=== PATIENT | male | born 1960 | race Two or more races ===

== ENCOUNTER 2020-11-14 21:51 | Emergency (ER) | payer SELFPAY ==
--- NOTE | 2020-11-14 21:54 | EDM.PDOC ---
ED HPI GENERAL MEDICAL PROBLEM - General Stated Complaint: LT KNEE SWELLING, FALL 3 WEEKS AGO Time Seen by Provider: 11/14/20 21:52 Source of Information: Reports: Patient History Limitations: Reports: No Limitations - History of Present Illness INITIAL COMMENTS - FREE TEXT/NARRATIVE: 60-year-old male presents for left knee pain and swelling following a fall 3 weeks ago. Patient notes it is painful to walk on and painful to bend the knee. He notes that it feels squishy when he is pressing on it. Denies hitting his head or LOC. He has ambulated but notes pain with ambulation. left knee Pain Score (Numeric/FACES): 6 - Related Data Allergies Allergy/AdvReac Type Severity Reaction Status Date / Time No Known Allergies Allergy Verified 11/14/20 22:20 Home Meds: Home Meds Acetaminophen/oxyCODONE [Percocet 325-5 MG] 1 each PO Q4H PRN #18 tab 11/15/20 [Rx] Ibuprofen [Motrin] 600 mg PO Q6H PRN #20 tab 11/15/20 [Rx] ED ROS GENERAL - Review of Systems Review Of Systems: Comprehensive ROS is negative, except as noted in HPI. ED EXAM, GENERAL - Physical Exam Exam: See Below Exam Limited By: No Limitations General Appearance: Alert, WD/WN, No Apparent Distress Ears: Hearing Grossly Normal Nose: Normal Inspection Throat/Mouth: Normal Voice, No Airway Compromise Head: Atraumatic, Normocephalic Neck: Normal Inspection Respiratory/Chest: No Respiratory Distress, Lungs Clear, Normal Breath Sounds, No Accessory Muscle Use Cardiovascular: Normal Peripheral Pulses, Regular Rate, Rhythm Extremities: Other (large joint effusion L knee w/ TTP, no erythema/warmth to indicate septic arthritis) Neurological: Alert, Normal Cognition Psychiatric: Normal Affect, Normal Mood Skin Exam: Warm, Dry, Intact, Normal Color ED JOINT ASPIRATION PROCEDURE - Joint Apsiration/Arthrocentesis Site: L knee medial Skin prep: Providone-Iodine (Betadine) Local anesthesia: Lidocaine: 1% with EPI Local Anesthetic Volume: 5cc Aspiration needle size: 18g Aspirate appearance: other (bloody) Aspirate amount in cc's: 40 Dressing: adhesive dressing Complications: No Course - Vital Signs Last Recorded V/S: Last Vital Signs Temp 97.3 F 11/14/20 22:17 Pulse 86 11/14/20 22:17 Resp 16 11/14/20 22:17 BP 131/86 11/14/20 22:17 Pulse Ox 97 11/14/20 22:17 - Orders/Labs/Meds Orders: Active Orders 24 hr Category Date Time Status Uriah Bandage [RC] ONETIME Care 11/15/20 00:13 Ordered Meds: Medications Discontinued Medications Generic Name Dose Route Start Last Admin Trade Name Freq PRN Reason Stop Dose Admin Lidocaine/Epinephrine 20 ml 11/14/20 23:50 11/14/20 23:53 Lidocaine 1% With Epinephrine 1:100,000 20 Ml Mdv INJECT 11/14/20 23:51 20 ml ONETIME ONE Administration Oxycodone/Acetaminophen 2 tab 11/14/20 22:22 11/14/20 22:28 Acetaminophen/Oxycodone 325-5 Mg Tab PO 11/14/20 22:23 2 tab ONETIME ONE Administration - Re-Assessments/Exams Free Text/Narrative Re-Assessment/Exam: 11/14/20 22:24 We will get x-ray imaging of the left knee. Will likely perform arthrocentesis. 11/14/20 23:45 XR imaging shows a small joint effusion although clinically knee looks like a large effusion. Offered patient attempt of therapeutic tap vs orthopedic f/u. He would like me to try arthrocentesis for relief now but does agree to f/u with orthopedics. Departure - Departure Time of Disposition: 00:13 Disposition: Home, Self-Care 01 Condition: Good Clinical Impression: Knee effusion, left - Discharge Information Prescriptions: Ibuprofen [Motrin] 600 mg PO Q6H PRN #20 tab PRN Reason: Pain Acetaminophen/oxyCODONE [Percocet 325-5 MG] 1 each PO Q4H PRN #18 tab PRN Reason: Pain Instructions: Knee Effusion, [id number] Referrals: PCP,None [Primary Care Provider] - Additional Instructions: Tremaine un seguimiento con un ortopedista para ramses evaluacin adicional y el manejo de medina derrame de rodilla. He enviado analgsicos a medina farmacia. Si la articulacin se enrojece mucho, se hincha y le duele o si tiene fiebre, regrese al departamento de emergencias para ramses reevaluacin. [facility] [address] [place] [address], [address] [place], [place] [id number] The following information is given to patients seen in the emergency department who are being discharged to home. This information is to outline your options for follow-up care. We provide all patients seen in our emergency department with a follow-up referral. The need for follow-up, as well as the timing and circumstances, are variable depending upon the specifics of your emergency department visit. If you don't have a primary care physician on staff, we will provide you with a referral. We always advise you to contact your personal physician following an emergency department visit to inform them of the circumstance of the visit and for follow-up with them and/or the need for any referrals to a consulting specialist. The emergency department will also refer you to a specialist when appropriate. This referral assures that you have the opportunity for follow-up care with a specialist. All of these measure are taken in an effort to provide you with optimal care, which includes your follow-up. Under all circumstances we always encourage you to contact your private physician who remains a resource for coordinating your care. When calling for follow-up care, please make the office aware that this follow-up is from your recent emergency room visit. If for any reason you are refused follow-up, please contact the [facility] Emergency Department at and asked to speak to the emergency department charge nurse. Please follow up with your primary care physician. If you do not have a primary care physician, see below: [facility] [address] [place] [id number] [facility] [address] [place], [place] [phone] [facility] [address], [place] [address] Sepsis Event Note (ED) - Focused Exam Vital Signs: Vital Signs Temp Pulse Resp BP Pulse Ox 11/14/20 22:17 97.3 F 86 16 131/86 97 - My Orders Last 24 Hours: My Active Orders 11/15/20 00:13 Uriah Bandage [RC] ONETIME - Assessment/Plan Last 24 Hours: My Active Orders 11/15/20 00:13 Uriah Bandage [RC] ONETIME
[2020-11-14] MEDS ORDERED: Acetaminophen/oxyCODONE 325-5 MG Tab PO ONE (22:22)
--- NOTE | 2020-11-14 23:36 | CR ---
INDICATION: Large left effusion after fall 3 weeks ago. COMPARISON: None available. FINDINGS: The left knee was examined with AP, lateral, and sunrise views for a total of three views. There is no sign of fracture or dislocation. There is mild narrowing of the medial joint compartment without any additional degenerative change, findings of minimal primary osteoarthritis. The lateral and patellofemoral joint compartments are normal in appearance. There is a mild suprapatellar joint effusion. No soft tissue abnormality is seen. IMPRESSION: No sign of acute osseous injury. Minimal medial joint compartment primary osteoarthritis. Mild suprapatellar joint effusion. Dictated by Wilner Qiu MD @ 11/14/2020 11:34:[address] Wilner Qiu @ Nov 14 2020 11:34PM
[2020-11-14] MEDS ORDERED: Lidocaine 1% with EPINEPHrine 1:100,000 20 ML MDV INJECT ONE (23:50)
== END 2020-11-15 00:30 | disposition home or self-care (01) ==
LOC: MW.ED 21:51
DX: M25.462 Effusion, left knee (principal)
CPT/HCPCS: 20610; 73562; 99283; A9270

== ENCOUNTER 2020-12-01 14:47 | Observation (INO) | payer SELFPAY ==
--- NOTE | 2020-12-01 14:56 | EDM.PDOC ---
ED HPI GENERAL MEDICAL PROBLEM - General Chief Complaint: Upper Extremity Injury/Pain Stated Complaint: FELL,CP,ARM HURTS Time Seen by Provider: 12/01/20 14:50 - History of Present Illness INITIAL COMMENTS - FREE TEXT/NARRATIVE: 60-year-old male with no known past medical history presenting with left shoulder and left upper chest pain as well as a right eyebrow laceration after a fall. Patient was trying to help his family member move a chicken coop. He lost his balance and fell landing on his right arm. He has pain primarily in the left shoulder that worsens with attempted range of motion the pain radiates into the left upper chest and scapular region. Some pain radiates down into the left elbow as well. No neck pain back pain abdominal pain or leg pain no nausea or vomiting no vision changes no headache but laceration just lateral to the right eyebrow. He has some pain with breathing but no shortness of breath. Chest Pain Score (Numeric/FACES): 10 Left Shoulder Pain Score (Numeric/FACES): 10 Upper Back Pain Score (Numeric/FACES): 10 - Related Data Allergies Allergy/AdvReac Type Severity Reaction Status Date / Time No Known Allergies Allergy Verified 12/01/20 14:52 Home Meds: Home Meds Ibuprofen [Motrin] 600 mg PO Q6H PRN #20 tab 11/15/20 [Rx] Esomeprazole Magnesium 20 mg PO BEDTIME 12/01/20 [History] Acetaminophen/HYDROcodone [[place] 325-5 MG] 1 - 2 tab PO Q6H PRN #30 tab 12/03/20 [Rx] Social & Family History - Family History Family Medical History: No Pertinent Family History - Caffeine Use Caffeine Use: Reports: None ED ROS GENERAL - Review of Systems Review Of Systems: See Below Free Text/Narrative/Comment: General: No fever. Skin: Per HPI Eyes: No vision problems. ENT: No sore throat. Neck: No neck stiffness. Respiratory: No shortness of breath. Cardiac: Per HPI Gastrointestinal: No nausea, vomiting or abdominal pain. Musculoskeletal: Per HPI Neurologic: No headache. ED EXAM, GENERAL - Physical Exam Exam: See Below Free Text/Narrative:: General Appearance: No acute distress, appears comfortable Skin: 2 cm vertical well approximated laceration just lateral to the right eyebrow no sign of deep structure injury no retained foreign body HEENT: Normocephalic, sclera anicteric, mucous membranes moist Neck: Normal range of motion Chest and Lungs: Bilateral breath sounds, clear to auscultation Cardiovascular: Regular rate and rhythm, no murmur Abdomen: Soft, non-tender Back: Normal Musculoskeletal: 2+ bilateral radial pulses poorly localized tenderness in the left elbow but no palpable deformity, tenderness over the glenohumeral joint as well. Minimal discomfort with gentle minimal range of motion but any significant shoulder range of motion's to significant discomfort. Neurologic: Awake, alert, no obvious deficits, moving all extremities Psychiatric: Appropriate, cooperative ED GENERAL MEDICAL PROCEDURES - Additional/Other Procedure(s) Other (Free Text) Procedure(s): Laceration Repair Procedure Location: Just lateral to the right eyebrow Length: 2 cm Repaired with Dermabond Complexity: Simple Time out: Yes, confirmed patient, place, procedure correct Consent: Verbal Procedure: The wound was irrigated copiously with normal saline or sterile water. Close inspection revealed no evidence for retained foreign bodies. Dermabond was applied with good approximation of the wound edges. Wound was held until Dermabond had finished its initial drying. Upon release of the wound good approximation remained Complications: None Performed by: Jarred Aguilar MD Course - Vital Signs Last Recorded V/S: Last Vital Signs Temp 97 F 12/03/20 12:00 Pulse 68 12/03/20 12:00 Resp 16 12/03/20 08:44 BP 126/76 12/03/20 12:00 Pulse Ox 95 12/03/20 12:00 - Orders/Labs/Meds Labs: Laboratory Tests 12/01/20 12/01/20 12/01/20 Range/Units 16:37 16:37 19:30 WBC 9.26 (4.0-11.0) K/uL RBC 5.08 (4.50-5.90) M/uL Hgb 15.0 (13.0-17.0) g/dL Hct 44.4 (38.0-50.0) % MCV 87.4 (80.0-98.0) fL MCH 29.5 (27.0-32.0) pg MCHC 33.8 (31.0-37.0) g/dL RDW Std Deviation 40.8 (28.0-62.0) fl RDW Coeff of Maged 13 (11.0-15.0) % Plt Count 229 (150-400) K/uL MPV 10.20 (7.40-12.00) fL Neut % (Auto) 81.8 H (48.0-80.0) % Lymph % (Auto) 11.9 L (16.0-40.0) % [place] % (Auto) 5.6 (0.0-15.0) % Eos % (Auto) 0.5 (0.0-7.0) % Baso % (Auto) 0.2 (0.0-1.5) % Neut # (Auto) 7.6 H (1.4-5.7) K/uL Lymph # (Auto) 1.1 (0.6-2.4) K/uL [place] # (Auto) 0.5 (0.0-0.8) K/uL Eos # (Auto) 0.1 (0.0-0.7) K/uL Baso # (Auto) 0.0 (0.0-0.1) K/uL Nucleated RBC % 0.0 /100WBC Nucleated RBCs # 0 K/uL Sodium 143 (136-148) mmol/L Potassium 4.1 (3.5-5.1) mmol/L Chloride 105 (98-107) mmol/L Carbon Dioxide 29.5 (21.0-32.0) mmol/L BUN 16 (7.0-18.0) mg/dL Creatinine 1.1 (0.8-1.3) mg/dL Est Cr Clr Drug Dosing 85.11 mL/min Estimated GFR (MDRD) > 60.0 ml/min Glucose 95 (74-106) mg/dL Calcium 8.9 (8.5-10.1) mg/dL SARS-CoV-2 RNA (ROSANNE) NEGATIVE (NEGATIVE) Meds: Medications Discontinued Medications Generic Name Dose Route Start Last Admin Trade Name Freq PRN Reason Stop Dose Admin Bupivacaine HCl Confirm 12/03/20 11:31 Bupivacaine 0.5% 30 Ml Sdv Administered 12/03/20 11:32 Dose 30 ml .ROUTE .STK-MED ONE Ibuprofen 600 mg 12/01/20 15:07 12/01/20 15:12 Ibuprofen 600 Mg Tab PO 12/01/20 15:08 600 mg ONETIME ONE Administration Ibuprofen 600 mg 12/01/20 20:08 12/01/20 21:30 Ibuprofen 600 Mg Tab PO 600 mg Q6H PRN Administration Pain (mild 1-3) Iopamidol 100 ml 12/01/20 17:38 12/01/20 17:40 Iopamidol 755 Mg/Ml 100 Ml Bottle IVPUSH 12/01/20 17:39 100 ml ONETIME STA Administration Morphine Sulfate 4 mg 12/01/20 16:24 12/01/20 16:38 Morphine 4 Mg/Ml Syringe IVPUSH 12/01/20 16:25 4 mg ONETIME ONE Administration Octyl Cyanoacrylate 1 applic 12/01/20 16:06 12/01/20 16:18 Octyl 2-Cyanoacrylate 1 Tube TOP 12/01/20 16:07 1 applic ONETIME ONE Administration Ondansetron HCl 4 mg 12/01/20 16:24 12/01/20 16:38 Ondansetron 4 Mg/2 Ml Sdv IVPUSH 12/01/20 16:25 4 mg ONETIME ONE Administration Ondansetron HCl 4 mg 12/01/20 20:08 Ondansetron 4 Mg Tab.Dis PO Q6H PRN nausea, able to take PO Oxycodone/Acetaminophen 2 tab 12/01/20 20:08 12/03/20 12:48 Acetaminophen/Oxycodone 325-5 Mg Tab PO 2 tab Q4H PRN Administration Pain (moderate 4-6) Sodium Chloride 10 ml 12/01/20 20:08 Sodium Chloride 0.9% 10 Ml Syringe FLUSH ASDIRECTED PRN Keep Vein Open Sodium Chloride 2.5 ml 12/01/20 20:08 Sodium Chloride 0.9% 2.5 Ml Syringe FLUSH ASDIRECTED PRN Keep Vein Open Departure - Departure Time of Disposition: 21:01 Disposition: Refer to Observation Condition: Good Clinical Impression: Simple laceration of face, Shoulder pain, acute, Acute pneumothorax - Discharge Information *PRESCRIPTION DRUG MONITORING PROGRAM REVIEWED*: Not Applicable *COPY OF PRESCRIPTION DRUG MONITORING REPORT IN PATIENT [place]: Not Applicable - Assessment/Plan Assessment:: 52-year-old male presents after fall as described above. Primary survey intact secondary survey notable for right eyebrow laceration. Will irrigate copiously likely amenable to repair with Dermabond. No headache no LOC ground-level fall no indication for CT scan of the brain. I believe he can clinically the spine abdomen pelvis and extremities with the exception of the left upper extremity. X-ray of the left shoulder and elbow pending chest x-ray as well to evaluate for any rib fracture or pneumothorax. But no clinical thorax on exam. 1630: Laceration repaired as documented. XR of shoulder and elbow w/out traumatic injury per radiology. CXR with possible left pleural hematoma, CT w ith contrast ordered to better define this. The patient does not have a mechanism of injury for aortic injury so CTA is not indicated. 183: CT scan demonstrates 1 mildly displaced and 2 nondisplaced rib fractures with an associated left-sided small pneumothorax. This occult pneumothorax was not seen on the chest x-ray. Patient's vital signs remained normal. Will discuss with general surgery. No chest tube indicated. 191: Patient discussed with Dr. Echavarria. He will come evaluate the patient. However, anticipated plan is admission for observation for repeat imaging in the morning. Patient signed out to Dr. Markham pending Dr. Echavarria's arrival and evaluation and final disposition.
[2020-12-01] MEDS ORDERED: Ibuprofen 600 MG Tab PO ONE (15:07)
--- NOTE | 2020-12-01 16:04 | CR ---
For Patients: As a result of the Cures Act, medical imaging exams and procedure reports are released immediately into your electronic medical record. You may view this report before your referring provider. If you have questions, please contact your health care provider. Indication: Fall. Technique: Three views of the left shoulder. Comparison: None Findings: The humeral head is seated within the glenoid. No acute fracture or subluxation is identified. Mild degenerative changes are identified. Impression: Mild degenerative change. No acute fracture Dictated by Jaci Em MD @ 12/01/2020 4:01:45 PM (Electronically Signed)
[2020-12-01] MEDS ORDERED: Octyl 2-Cyanoacrylate 1 Tube TOP ONE (16:06)
--- NOTE | 2020-12-01 16:10 | CR ---
For Patients: As a result of the Cures Act, medical imaging exams and procedure reports are released immediately into your electronic medical record. You may view this report before your referring provider. If you have questions, please contact your health care provider. INDICATION: Chest and left shoulder pain after fall. COMPARISON: None available. FINDINGS: PA and lateral views of the chest were obtained. There is mild pleural density along the left lateral mid chest, without any definite associated rib fractures or pulmonary contusion. This could be a pleural hematoma or pleural thickening. There is no sign of a pleural effusion or pneumothorax. There is a faintly seen nodule measuring 9 millimeters in diameter in the left lateral lower chest located between the anterior 6th and 7th ribs. I am uncertain as to whether this is calcified. Recommend comparison with any previous imaging. If none is available, consider CT of the chest without contrast. The lungs are otherwise clear. No focal or diffuse infiltrates are present. The heart is normal in size. The mediastinum is normal in appearance. There is mild anterior wedging of T7 through T9 consistent with mild compression fractures of indeterminate age. There is no sign of any paraspinous soft tissue swelling to indicate acute fracture. There is mild scoliosis of the inferior thoracic spine convex towards the right. IMPRESSION: Mild left lateral pleural density, pleural thickening versus pleural hematoma. No sign of any injury to the underlying left lung. 9 millimeter nodule in the left lateral lower lung. Recommend comparison with previous imaging of the chest. If none are available, consider noncontrast CT of the chest. Dictated by Wilner Qiu MD @ 12/01/2020 4:08:50 PM (Electronically Signed)
--- NOTE | 2020-12-01 16:16 | CR ---
Indication: Fall. Pain. Technique: Three views of the left shoulder. Comparison: None Findings: The humeral head is seated within the glenoid. No acute fracture or subluxation is identified. Mild degenerative changes are identified. Impression: Mild degenerative change. No acute fracture. Dictated by Jaci Em MD @ 12/01/2020 4:15:[address] Jaci Em @ Dec 01 2020 4:15PM
[2020-12-01] MEDS ORDERED: Morphine 4 MG/ML Syringe IVPUSH ONE (16:24)
[2020-12-01] MEDS ORDERED: Ondansetron 4 MG/2 ML SDV IVPUSH ONE (16:24)
[2020-12-01 16:58] LABS: BLOOD UREA NITROGEN,BUN 16 mg/dL (7.0-18.0); CARBON DIOXIDE,CO2 29.5 mmol/L (21.0-32.0); CHLORIDE,CL 105 mmol/L (98-107); GLUCOSE RANDOM 95 mg/dL (74-106); POTASSIUM,K 4.1 mmol/L (3.5-5.1); SODIUM,NA 143 mmol/L (136-148)
[2020-12-01] MEDS ORDERED: Iopamidol 755 Mg/ML 100 ML Bottle IVPUSH STA (17:38)
--- NOTE | 2020-12-01 18:22 | CT ---
INDICATION: Trauma to left chest TECHNIQUE: CT chest was acquired with IV contrast. Approximately 75 cc of Isovue 370 contrast was administered intravenously. COMPARISON: None FINDINGS: The heart is normal in size. There are no suspicious mediastinal, hilar or axillary adenopathy. There is a minimally displaced left 4th lateral rib fracture and nondisplaced lateral 3rd and 5th rib fracture. There is a small left pneumothorax. The nodule questioned on the chest x-ray, likely represents a nipple shadow. No suspicious pulmonary masses or nodules visualized. 67 There is a small hiatal hernia. There are 2 hypoattenuating liver lesions, which measure simple cysts. The remainder of the visualized upper abdomen is unremarkable. IMPRESSION: Small left pneumothorax, secondary to minimally displaced left lateral 4th and nondisplaced lateral 3rd and 5th rib fractures. Please note that all CT scans at this facility use dose modulation, iterative reconstruction, and/or weight-based dosing when appropriate to reduce radiation dose to as low as reasonably achievable. Dictated by Carmen Gordon MD @ 12/01/2020 6:20:[address] Carmen Gordon @ Dec 01 2020 6:20PM
[2020-12-01] MEDS ORDERED: Sodium Chloride 0.9% 10 ML Syringe FLUSH PRN (20:08)
[2020-12-01] MEDS ORDERED: Ondansetron 4 MG Tab.DIS PO PRN (20:08)
[2020-12-01] MEDS ORDERED: Ibuprofen 600 MG Tab PO PRN (20:08)
[2020-12-01] MEDS ORDERED: Sodium Chloride 0.9% 2.5 ML Syringe FLUSH PRN (20:08)
[2020-12-02] MEDS: Acetaminophen/oxyCODONE 325-5 MG Tab PO PRN ×2 (06:41→20:30)
--- NOTE | 2020-12-02 07:27 | CONS ---
DATE OF CONSULTATION: 12/01/2020 DATE OF : 1960 PRIMARY CARE PHYSICIAN: None PCP HISTORY OF PRESENT ILLNESS: The patient is a pleasant 60-year-old gentleman who earlier this afternoon was removing some wood siding off a chicken coop. He says he was pulling too hard and that the wood came off and he fell backwards. It was a fall from standing height. He denies any loss of consciousness. He did get some mainly left shoulder pain and some kind of left scapular pain. He denies any neck pain or abdominal pain or really pain anywhere else in his body. He did get a small laceration above his right eye. This has already been cleaned and glued shut by the ER physician. The patient currently says he is feeling much better. He denies any current shortness of breath. On workup, he had to get a chest x-ray that showed potentially a pleural hematoma or maybe pleural thickening. Because of this, he did get a chest CT scan which showed a minimally displaced left 4th lateral rib and nondisplaced 3rd and 5th rib fracture and a fairly small left pneumothorax. X-ray of his left elbow showed no acute fracture and of his left shoulder showed no acute fracture. General Surgery was consulted because of occult pneumothorax on CT scan. PAST MEDICAL HISTORY: The patient denies any. CURRENT HOME MEDICATIONS: The patient denies any. ALLERGIES: The patient denies any drug allergies. PAST SURGICAL HISTORY: The patient has had a couple small lesions removed from his arm and back, sounds like they were lipomas. FAMILY HISTORY: Patient denies any family history of cancer, diabetes, or heart disease. SOCIAL HISTORY: The patient denies tobacco use. Denies any illicit drug use. He does occasionally have beer or 2 in the evening. REVIEW OF SYSTEMS: Complete 12 plus review of systems was done and was negative except those in HPI. PHYSICAL EXAMINATION: GENERAL: The patient is lying comfortably in his ER bed. He is alert and oriented, in no acute distress. VITAL SIGNS: Temperature is 98, pulse is 60, blood pressure is 145/87, saturating 99% on room air. HEAD: Normocephalic. Does have small about 2 cm laceration above his right eye that has been glued. It looks clean, dry, and intact. LUNGS: Clear to auscultation bilaterally. No rhonchi or wheezing heard. He has some pain on his anterior left chest. HEART: Regular rate and rhythm. No murmur appreciated. BACK: The patient does not have any pain or step-offs going down his back. ABDOMEN: Soft, nontender, nondistended. EXTREMITIES: No edema. Grossly, no neurological deficits. MUSCULOSKELETAL: The patient does seem to have full range of motion on both his left and right shoulders when moved around. 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 ASSESSMENT/PLAN: The patient is a pleasant 60-year-old gentleman who fell from standing and has 3 rib fractures along with occult small left pneumothorax. I did go over with the patient and his family members what pneumothorax was. This is very small and currently does not need to have a chest tube. The patient is 100% on room air and he is not currently short of breath. I did go over with the patient that it is best to keep him overnight for observation. If he started having shortness of breath or difficulty breathing, then we will get a chest x-ray and potentially might need to place a chest tube. We will also get a chest x-ray tomorrow afternoon. If this again shows no pneumothorax, the patient can then go home with followup. I answered all the patient's questions. The patient wishes to be full code while in the hospital. DAVID SANTIAGO /[id number] WANDER
--- NOTE | 2020-12-02 11:55 | CR ---
Indication: Pneumothorax Technique: Chest 2 views Comparison: CT chest December 01, 2020 Findings/Impression: Cardiovascular and mediastinum: Heart size and vasculature are normal in caliber and appearance. Mediastinum is within normal limits. Lungs and pleural spaces: Small left apical pneumothorax comprises less than 10 percent of the lung volume. Remainder of the lungs and pleural spaces are clear. Bones and soft tissues: No significant findings. Dictated by Víctor Máruqez MD @ 12/02/2020 11:54:[address] Víctor Márquez @ Dec 02 2020 11:54AM
--- NOTE | 2020-12-02 15:19 | PN ---
SUBJECTIVE: The patient was seen both this morning and afternoon. This afternoon, the patient states he is feeling much better. His left shoulder pain has greatly improved. The patient denies any shortness of breath. He has continued to saturate well with no nasal cannula. He has been using his IS. He has been up and walking. He is tolerating a diet. OBJECTIVE: VITAL SIGNS: Temperature is 97.3, pulse is 52, blood pressure is 128/74, saturating 97% on room air. LUNGS: Clear to auscultation bilaterally. No rhonchi are heard. LABORATORY DATA: Chest x-ray done and did show a small, less than 10% left apical pneumothorax. Called the radiologist and discussed it with him. He says that the pneumothorax does appear to be about the same as it was yesterday. ASSESSMENT AND PLAN: The patient is a pleasant 60-year-old gentleman who fell from standing and has 3 rib fractures and a small, less than 10% pneumothorax. This has been stable. He has no shortness of breath. He is still saturating well. I did go over with the patient I would like to give him 1 more day with a chest x-ray tomorrow morning. If it is stable or resolving, he can go home. If it is increasing, I would have to discuss placing a chest tube. The patient understands. All his questions were answered. DAVID SANTIAGO /[id number]
[2020-12-03] MEDS: Acetaminophen/oxyCODONE 325-5 MG Tab PO PRN ×2 (08:41→12:48)
--- NOTE | 2020-12-03 09:32 | CR ---
HISTORY: Pneumothorax. TECHNIQUE: Two-view chest. COMPARISON: Chest x-ray 12/02/2020. CT chest 12/01/2020. FINDINGS: Tiny left apical pneumothorax has decreased in size. Mild atelectasis in the left lung base. Trace left pleural effusion. No right pleural effusion or pneumothorax. Pulmonary vasculature and cardiomediastinal silhouette are within normal limits. IMPRESSION: Tiny left apical pneumothorax has decreased in size. Left basilar atelectasis. Dictated by Ernie Grossman MD @ 12/03/2020 9:30:[address] Ernie Grossman @ Dec 03 2020 9:30AM
[2020-12-03] MEDS ORDERED: Bupivacaine 0.5% 30 ML SDV ONE (11:31)
--- NOTE | 2020-12-03 12:02 | PCM.SN.2 ---
- Free Text/Narrative Note: Asked to evaluate patient for pain management s/p right 4-7 rib fractures. Patient stable but c/o left sided rib pain c/w fractures Discussed option of US guided MAYRA block (erector Spinae Plane) for pain control and improved pulmonary toilet. Under sterile conditions following informed consent with patient in sitting position an US was used to identify the left 4th and 5th Transverse process. Following localization with 2% lidocaine, a 20g 4 inch echogenic needle was advance (in Plane) under direct visualization until TP contacted. Following negative aspiration, 20cc 0.5% bupivicaine was injected in 5 cc increments. Patient tolerated procedure well and local spread under MAYRA was identified. No complications. VSS. Patient obtained good pain relief following procedure. Anesthesia Start: 1130 Anesthesia Stop: 1145 Oswald Dupree MD 12/03/2020
--- NOTE | 2020-12-03 13:25 | PN ---
SUBJECTIVE: The patient is saying he is feeling much better today. He is having less pain to his left shoulder. He denies any shortness of breath. He says he has been using his incentive spirometer. He is up to about 2000 on it. He did have a chest x-ray done this morning which showed a tiny left apical pneumo that has decreased in size. OBJECTIVE: GENERAL: The patient is sitting comfortably in his bed. He is alert and oriented, in no acute distress. VITAL SIGNS: Temperature is 97, pulse 68, blood pressure is 126/76, saturating 95% on room air. LUNGS: Clear to auscultation bilaterally with no rhonchi or wheezing heard. IMAGING: Small apical pneumo decreased in size. ASSESSMENT AND PLAN: The patient is a pleasant 60-year-old gentleman who fell while fixing a chicken coop. He did get three left-sided rib fractures and a tiny pneumothorax. He has been treated conservatively. He says he is feeling better. His pneumothorax has decreased in size. I did go over with the patient that it is important that he use his IS since a major complications of rib fracture is developing pneumonia. He can go home and take ibuprofen as scheduled. We will give him some [place] for pain relief too. I also discussed with him today on having Anesthesia see for possible nerve block. He is up for this. We will consult Anesthesia for this. After he gets his nerve block, he will be ready to go home. Discussed with the patient if he has any shortness of breath or increased pain, he is to come right back to the clinic or ER for evaluation. Otherwise, we will see him back in the clinic in about a week with a followup chest x-ray to make sure he has resolution of his tiny pneumothorax. All the patient's questions were answered. DAVID SANTIAGO /[id number] WANDER
== END 2020-12-03 12:58 | disposition home or self-care (01) ==
LOC: MW.ED 14:47 → MW.MS 20:08
PROVIDERS: ADMIT Surgery; ATTEND Surgery
DX: S22.42XA Multiple fractures of ribs, left side, initial encounter for closed fracture (principal); S27.0XXA Traumatic pneumothorax, initial encounter; S01.111A Laceration without foreign body of right eyelid and periocular area, initial encounter; W18.30XA Fall on same level, unspecified, initial encounter; Z79.899 Other long term (current) drug therapy; Z20.822 Contact with and (suspected) exposure to COVID-19
CPT/HCPCS: 36415; 71046; 71260; 73030; 73070; 80048; 85025; 87635; 96374; 96375; 99285; A9270; G0378; J2270; J2405; J3490; Q9967; U0002